=== PATIENT | female | born 2000 | race Caucasian/White ===

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

== ENCOUNTER 2022-06-29 09:38 | Emergency (ER) | payer OTHER ==
[2022-06-29 09:53] VITALS: BP 115/76; PULSE 94; RESP 18; TEMP 97; BMI 25.9
[2022-06-29] MEDS ORDERED: FLUCONAZOLE 150 MG TABLET PO ONE ×2 (11:32→11:35)
[2022-06-29 12:13] LABS: HCG,QUALITATIVE URINE Negative
[2022-06-29 12:14] LABS: EPI CELLS >36 /uL (0-25.1); HYALINE CASTS 1 /uL (0-3.1); URINE APPEARANCE CLEAR; URINE BACTERIA 364 /uL (0-1359); URINE BILIRUBIN NEGATIVE (NEGATIVE); URINE COLOR YELLOW; URINE GLUCOSE (UA) NEGATIVE (NEGATIVE); URINE KETONE NEGATIVE (NEGATIVE); URINE LEUK ESTERASE 1+ (NEGATIVE); URINE NITRITE NEGATIVE (NEGATIVE); URINE PROTEIN NEGATIVE (NEGATIVE); URINE RBC 5 /uL (0-23.9); URINE UROBILINOGEN 0.2 mg/dL (0.2-1.0); URINE WBC 25 /uL (0-25.8)
== END 2022-06-29 12:52 | disposition home or self-care (01) ==
LOC: JERFT 09:38 → JER 09:38 → JERFT 12:52
DX: B37.3 Candidiasis of vulva and vagina (principal)
CPT/HCPCS: 36415; 81003; 84703; 87070; 87077; 87086; 87205; 87491; 87591; 99283-25

== ENCOUNTER 2024-06-21 23:04 | Emergency (ER) | payer OTHER ==
[2024-06-21 23:15] VITALS: BP 117/80; PULSE 119; RESP 18; TEMP 97.5; BMI 22.6
== END 2024-06-21 23:39 | disposition home or self-care (01) ==
LOC: JER 23:04
DX: R10.13 Epigastric pain (principal)
CPT/HCPCS: 99282-25